=== PATIENT | female | born 1985 | race Caucasian/White ===

== ENCOUNTER → 2017-03-14 | Outpatient (CLI) | payer BC | END | disposition home or self-care (01) | LOC: C.PAPS 15:14 | PROVIDERS: ATTEND Obstetrics & Gynecology | DX: Z01.419 Encounter for gynecological examination (general) (routine) without abnormal findings (principal) ==

== ENCOUNTER → 2018-03-26 | Outpatient (CLI) | payer BC | END | disposition home or self-care (01) | LOC: C.PAPS 11:32 | PROVIDERS: ATTEND Obstetrics & Gynecology | DX: Z01.419 Encounter for gynecological examination (general) (routine) without abnormal findings (principal); Z86.001 Personal history of in-situ neoplasm of cervix uteri ==

== ENCOUNTER → 2018-03-26 | Outpatient (CLI) | payer BC | END | disposition home or self-care (01) | LOC: C.LAB1850 09:10 | PROVIDERS: ATTEND Obstetrics & Gynecology | DX: Z11.3 Encounter for screening for infections with a predominantly sexual mode of transmission (principal) ==

== ENCOUNTER 2019-06-01 19:58 | Inpatient (IN) ==
[2019-06-01] MEDS ORDERED: ONDANSETRON INJ 2 MG/ML 2 ML VIAL IV STA (20:57)
[2019-06-01] MEDS ORDERED: SODIUM CHLORIDE 0.9% 1000ML 2,000 ML IV SCH (21:00)
[2019-06-01 21:10] LABS: Basophils # (auto) 0.03 K/uL (0-0.2); Basophils % (auto) 0.3 %; Eosinophils # (auto) 0.06 K/uL (0-0.5); Eosinophils % (auto) 0.5 %; Hemoglobin 16.6 g/dL (12.0-16.0); Immature Granulocytes # (auto) 0.14 K/uL (0.00-0.02); Immature Granulocytes % (auto) 1.2 %; Lymphocytes # (auto) 3.42 K/uL (1.2-3.4); Lymphocytes % (auto) 28.9 %; Mean Corpuscular Hgb Conc 34.6 g/dL (32-36); Mean Corpuscular Volume 82.5 fL (80-100); Mean Platelet Volume 10.4 fL (7.4-10.4); Monocytes % (auto) 8.5 %; Neutrophils # (auto) 7.17 K/uL (1.4-6.5); Neutrophils % (auto) 60.6 %; Platelet Count 524 K/uL (130-400); RDW Coefficient of Variation 13.7 % (11.5-14.5); RDW Standard Deviation 40.9 fL (36.4-46.3); Red Blood Count 5.82 M/uL (4.2-5.4); White Blood Count 11.82 K/uL (4.8-10.8)
[2019-06-01 21:18] LABS: Albumin Level 3.4 gm/dl (3.4-5.0); BUN Creatinine Ratio 12.3 (10-20); Est GFR (Non-African American) 84.6; Magnesium 2.2 mg/dl (1.8-2.4); Potassium 4.2 mmol/L (3.5-5.1)
[2019-06-01 21:21] LABS: Albumin Globulin Ratio 0.7 (0.9-2); Bilirubin,Total 0.4 mg/dl (0.2-1); Globulin 5.1 gm/dl (2.5-4.0); Phosphorus 2.4 mg/dl (2.5-4.9); Total Protein 8.5 gm/dl (6.4-8.2)
[2019-06-01 21:27] LABS: Pregnancy Test, Serum Negative (Negative)
--- NOTE | 2019-06-02 00:09 | Emergency Department Note ---
Entered by Jimena Obando acting as a scribe for Mario Morocho M.D. History of Present Illness General Chief complaint: Weakness Stated complaint: WEAKNESS,LOWER BACK PAIN,DIARRHEA,DEHYDRATION Source: patient Limitations: no limitations History of Present Illness Onset (ago): week(s) 3 Location: abdomen Pain Consistency: + constant Maximum Pain Intensity: 1 Quality: + other ("cramping"") Relieved By: + none Associated symptoms: + denies other symptoms (hematochezia ), + diaphoresis, + nausea/vomiting and + weakness; no chest pain and no rash The patient is a 34 year old female who presents to the ED complaining of constant "cramping" abdominal pain that began 3 weeks ago. She notes that she was seen in the ED 10 days ago, and her stool samples were negative for C. Diff. Colitis and E. coli. The patient complains of "watery" diarrhea, stating that she has had a couple dozen bowel movements today. She complains of severe nausea, one episode of vomiting 3 weeks ago, diaphoresis, and weakness. She states that she has been hypertensive over the past week, noting that she has been using an at-home blood pressure cuff. The patient denies any chest pain, hematochezia, and rashes. The patient notes that Pedialyte did not provide any relief. She notes that she is prescribed Metformin 500 grams daily. The patient reports that one friend has similar symptoms, noting that they ate zucchini noodles before the symptoms began. She notes that she drinks city water. Home Medications Home Medications Medication Instructions Recorded Confirmed Type amitriptyline 75 mg PO HS 05/23/19 06/01/19 History duloxetine 60 mg PO QPM 05/23/19 06/01/19 History metformin 500 mg PO BID 05/23/19 06/01/19 History norethindrone ac-eth estradiol 1 tab PO DAILY 05/23/19 06/01/19 History [ ()] sitagliptin [Januvia] 100 mg PO QAM 05/23/19 06/01/19 History clonazepam 0.5 mg PO Q6H PRN 06/01/19 06/01/19 History diphenoxylate-atropine [Lomotil] 1 - 2 tab PO Q6H PRN 06/01/19 06/01/19 History duloxetine 30 mg PO QPM 06/01/19 06/01/19 History sumatriptan succinate 50 mg PO DIRECTED PRN MDD 200 06/01/19 06/01/19 History MG/24 HOURS Allergies Allergy/AdvReac Type Severity Reaction Status Date / Time adhesive tape Allergy Mild Rash Verified 06/01/19 20:50 nickel Allergy Mild Rash Verified 06/01/19 20:50 Past Med/Surg History Medical History Anxiety (Chronic) Depression (Chronic) Diabetes (Chronic) Migraine (Chronic) Surgical History No history of previous surgery (Chronic) Social History marital status: Single 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 and A total of 10 systems reviewed and were otherwise negative Physical Exam Vital Signs Vital Signs - 24 hr 06/01/19 20:01 06/01/19 21:35 06/01/19 21:53 Temperature 36.6 C Temperature Source Oral Sepsis Recent Fever Within 48 Hours No Sepsis Action Taken by Nursing No Action Required Pulse Rate 148 H Pulse Rate [Apical] 126 H Respiratory Rate 16 16 Respiratory Effort / Characteristics Non-Labored Spontaneous Non-Labored Spontaneous Respiratory Depth Normal Normal Blood Pressure 166/122 H Blood Pressure [Right Arm] 159/117 H Blood Pressure Mean 136 Blood Pressure Mean [Right Arm] 131 Pulse Oximetry 98 98 Oxygen Delivery Method Room Air Room Air Room Air 06/01/19 23:00 Temperature Temperature Source Sepsis Recent Fever Within 48 Hours Sepsis Action Taken by Nursing Pulse Rate Pulse Rate [Apical] 123 H Respiratory Rate 18 Respiratory Effort / Characteristics Respiratory Depth Blood Pressure Blood Pressure [Right Arm] Blood Pressure Mean Blood Pressure Mean [Right Arm] Pulse Oximetry 98 Oxygen Delivery Method GENERAL: Awake, alert, fatigued in appearance. Midly anxious HENT: Normocephalic, atraumatic. Oropharynx unremarkable. Dry lips. EYES: Normal conjunctiva. Sclera non-icteric. NECK: Supple. No nuchal rigidity. RESPIRATORY: Clear to auscultation. No wheezes. Normal respiratory effort. CARDIAC: Tachycardic rate. Normal rhythm. Extremities warm. GI: Soft, non-distended. No tenderness to palpation. No rebound or guarding. No masses. RECTAL: Deferred. MUSCULOSKELETAL: Atraumatic. Chest examination reveals no tenderness. LOWER EXTREMITIES: Calves are equal size bilaterally and non-tender. No edema NEURO: Normal sensorium. No sensory or motor deficits noted. No facial droop. SKIN: Warm and dry. No rash or jaundice noted. Course 2053: The patient was evaluated in room B09. A complete history and physical exam was performed. 4: I reevaluated the patient. 0009: I spoke with Dr. Kwan, [facility], about the patient's case. He will further evaluate the patient. Consultations Consultation #1: I spoke with Dr. Kwan, [facility], about the patient's case. He will further evaluate the patient. Time: 00:09 Administered Medications Discontinued Medications Sodium Chloride (Nss 1000ml) 2,000 mls @ 999 mls/hr IV .Q2H1M EMMA Stop: 06/01/19 23:00 Last Infusion: 06/01/19 23:23 Dose: 0 mls/hr Documented by: [id number] Admin: 06/01/19 21:20 Dose: 999 mls/hr Documented by: [id number] Sodium Chloride (Nss 1000ml) 1,000 mls @ 999 mls/hr IV .Q1H1M ONE Stop: 06/02/19 01:14 Last Admin: 06/02/19 00:27 Dose: 999 mls/hr Documented by: [id number] Ondansetron HCl (Zofran) 4 mg IV NOW STA Stop: 06/01/19 20:58 Last Admin: 06/01/19 21:20 Dose: 4 mg Documented by: [id number] Medical Decision Making Differential Diagnosis Etiologies such as gastroenteritis, food borne illness, infections, appendicitis, diverticulitis, inflammatory bowel disease, obstruction, GI bleed, biliary pathology, cardiac process, intracranial process, as well as others were entertained. Medical Records Attestation: I reviewed the patient's medical records. Home Medications Current Medication List: was personally reviewed by me Laboratory Data Attestation: I reviewed the patient's lab results. Result diagrams: 06/01/19 20:25 06/01/19 20:25 Lab Results 06/01/19 06/01/19 06/01/19 Range/Units 20:25 20:25 20:25 WBC 11.82 H (4.8-10.8) K/uL RBC 5.82 H (4.2-5.4) M/uL Hgb 16.6 H (12.0-16.0) g/dL Hct 48.0 H (37-47) % MCV 82.5 (80-100) fL MCH 28.5 (25-34) pg MCHC 34.6 (32-36) g/dL RDW Std Deviation 40.9 (36.4-46.3) fL RDW Coeff of Mallory 13.7 (11.5-14.5) % Plt Count 524 H (130-400) K/uL MPV 10.4 (7.4-10.4) fL Immature Gran % (Auto) 1.2 % Neut % (Auto) 60.6 % Lymph % (Auto) 28.9 % [place] % (Auto) 8.5 % Eos % (Auto) 0.5 % Baso % (Auto) 0.3 % Immature Gran # (Auto) 0.14 H (0.00-0.02) K/uL Neut # (Auto) 7.17 H (1.4-6.5) K/uL Lymph # (Auto) 3.42 H (1.2-3.4) K/uL [place] # (Auto) 1.00 H (0.11-0.59) K/uL Eos # (Auto) 0.06 (0-0.5) K/uL Baso # (Auto) 0.03 (0-0.2) K/uL Sodium 139 (136-145) mmol/L Potassium 4.2 (3.5-5.1) mmol/L Chloride 108 H (98-107) mmol/L Carbon Dioxide 22 (21-32) mmol/L Anion Gap 9.0 (3-11) BUN 11 (7-18) mg/dl Creatinine 0.89 (0.6-1.2) mg/dl Est Cr Clr Drug Dosing 103.0 ml/min Est GFR ( Amer) 98.0 Est GFR (Non-Af Amer) 84.6 BUN/Creatinine Ratio 12.3 (10-20) Glucose 173 H (70-99) mg/dl Calcium 9.0 (8.5-10.1) mg/dl Phosphorus 2.4 L (2.5-4.9) mg/dl Magnesium 2.2 (1.8-2.4) mg/dl Total Bilirubin 0.4 (0.2-1) mg/dl AST 41 H (15-37) U/L ALT 76 (12-78) U/L Alkaline Phosphatase 125 H (45-117) U/L Total Protein 8.5 H (6.4-8.2) gm/dl Albumin 3.4 (3.4-5.0) gm/dl Globulin 5.1 H (2.5-4.0) gm/dl Albumin/Globulin Ratio 0.7 L (0.9-2) Lipase 50 L (73-393) U/L TSH 4.010 (0.300-4.500) uIu/ml HCG, Qual Negative (Negative) ECG Data Attestation: I personally reviewed and interpreted this ECG as follows: Indication: abdominal pain Rate (beats per minute): 140 Rhythm: sinus tachycardia Findings: no PVC, no ST depression and no ST elevation Blood Pressure Blood Pressure Findings: Elevated blood pressure Blood Pressure Disposition: further management by hospitalist CASI Brown Patient is a 34-year-old female history of anxiety, migraines, and diabetes presenting today complaining of going on 3 weeks of severe diarrhea daily. Denies any blood in the states is watery. States he feels dehydrated. Severe nausea. Initially an episode of vomiting several weeks ago but none since. Crampy but no significant abdominal tenderness. Was evaluated here approximately 10 days ago. Negative C. difficile and stool testing at that time. Patient denies any significant travel. Patient had a friend with similar exposure who is also experiencing similar symptoms. Patient is significantly tachycardic upon arrival. Concern for dehydration. Given IV fluid. Given Zofran for nausea. Basic laboratory studies were sent to check for signs of anemia, leukocytosis, hepatitis, pancreatitis, or significant elect light abnormality as well as kidney injury. Giardia testing will be sent as well as repeat stool testing. Do not see utility in additional CT scan at this point today. Laboratory studies show improving leukocytosis with some signs of hemoconcentration compared to previous consistent with some dehydration. No significant electrolyte abnormality or signs of kidney injury. No evidence of or pancreatitis. No evidence of acute significant transaminitis. Patient received a 2 L IV fluid bolus and was still tachycardic in the 120s. States she felt extremely weak and did not feel that she could go home. Is likely related some dehydrational effects due to her prolonged episode of diarrhea. Given this discussed with the hospitalist for observation overnight. Impression & Plan Diarrhea, Dehydration, Weakness Discharge Plan Visit Data Chief Complaint: Weakness Stated Complaint: WEAKNESS,LOWER BACK PAIN,DIARRHEA,DEHYDRATION ED Provider: Mario Morocho Discharge Problem: Diarrhea, Dehydration, Weakness Patient Disposition: Being Evaluated by Hospitalist Forms Stand Alone Forms: My [facility] Prescriptions Prescriptions: No Action amitriptyline 75 mg tablet 75 mg PO HS RF: 0 .04/17 () 1.5-30 mg-mcg tablet 1 tab PO DAILY RF: 0 metformin 500 mg tablet extended release 24 hr 500 mg PO BID RF: 0 duloxetine 60 mg capsule,delayed release(DR/EC) 60 mg PO QPM RF: 0 Januvia 100 mg tablet 100 mg PO QAM RF: 0 duloxetine 30 mg capsule,delayed release(DR/EC) 30 mg PO QPM RF: 0 diphenoxylate-atropine [Lomotil] 2.5-0.025 mg tablet 1 - 2 tab PO Q6H PRN (Reason: Diarrhea) RF: 0 clonazepam 0.5 mg tablet 0.5 mg PO Q6H PRN (Reason: Panic Attack(S)) RF: 0 sumatriptan succinate 50 mg tablet 50 mg PO DIRECTED MDD 200 MG/24 HOURS PRN (Reason: Migraine Headache) RF: 0 Referrals Referrals: Sharon Rbuy MD [Primary Care Provider] - Discharge Problem: Diarrhea Qualifiers: Diarrhea type: unspecified type Qualified Code(s): R19.7 - Diarrhea, unspecified The scribe's documentation has been prepared under my direction and personally reviewed by me in its entirety. I confirm that the note above accurately reflects all work, treatment, procedures, and medical decision making performed by me.
[2019-06-02] MEDS ORDERED: SODIUM CHLORIDE 0.9% 1000ML 1,000 ML IV ONE (00:14)
[2019-06-02] MEDS ORDERED: LACTATED RINGER'S 1,000 ML IV SCH ×2 (00:15→01:30)
--- NOTE | 2019-06-02 00:57 | History & Physical Report ---
Date of Service June 02, 2019 Assessment & Plan (1) Diarrhea: Month-long symptoms No signs of toxicity ? Januvia or Metformin side effect Rule out enteric pathogens/parasites Tachycardia, situational hypertension Secondary to illness DM2, on oral medications Newly diagnosed last month Hemoglobin A1c was 9.2 Mood disorder, at baseline OBS Medical telemetry for IVF, antidiarrheals Stool cultures GI consult RE persistent diarrhea Monitor diarrhea symptoms while metformin and Januvia on hold inpatient. Monitor blood pressure, initiate lisinopril if persistently elevated. Basal insulin, ISS BG goal, 1 40-1 80, carb count coverage DVT prophylaxis. Lovenox subcu Full code History of Present Illness Chief Complaint: Persistent diarrhea Primary Care Provider: Sharon Ruby MD History obtained from patient and records. Medical history significant for mood disorder, DM 2 on oral medications, past tobacco abuse. 1 month history of watery diarrhea symptoms (more than 12 times a day) with abdominal cramping. Low-grade fever. Episodic nausea, vomiting. No recent antibiotic Rx, no known sick contacts, no recent travel. Januvia and Metformin for newly diagnosed DM2 started a week prior to onset of diarrhea symptoms last month. Diarrhea persistent despite stopping metformin intake for one day as per patient. Patient seen at the ER [address] of the abdomen pelvis showed fluid-filled colon and rectum suggesting diarrheal state. No bowel thickening. Fatty infiltration of the liver. Stool C. difficile was negative Antidiarrheal meds prescribed. Patient return to the ER tonight because of persistent diarrhea symptoms. Patient denies chest pain, S OB. 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 Allergies Allergy/AdvReac Type Severity Reaction Status Date / Time adhesive tape Allergy Mild Rash Verified 06/01/19 20:50 nickel Allergy Mild Rash Verified 06/01/19 20:50 lactose AdvReac Verified 06/02/19 03:11 Home Medications Home Medications Medication Instructions Recorded Confirmed Type amitriptyline 75 mg PO HS 05/23/19 06/01/19 History duloxetine 60 mg PO QPM 05/23/19 06/01/19 History metformin 500 mg PO BID 05/23/19 06/01/19 History norethindrone ac-eth estradiol 1 tab PO DAILY 05/23/19 06/01/19 History [Junel ()] sitagliptin [Januvia] 100 mg PO QAM 05/23/19 06/01/19 History clonazepam 0.5 mg PO Q6H PRN 06/01/19 06/01/19 History diphenoxylate-atropine [Lomotil] 1 - 2 tab PO Q6H PRN 06/01/19 06/01/19 History duloxetine 30 mg PO QPM 06/01/19 06/01/19 History sumatriptan succinate 50 mg PO DIRECTED PRN MDD 200 06/01/19 06/01/19 History MG/24 HOURS Past Med/Surg History Medical History Anxiety (Chronic) Depression (Chronic) Diabetes (Chronic) Migraine (Chronic) Surgical History No history of previous surgery (Chronic) Social History marital status: Single 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 Feels Safe at Home: Yes Smoking Status: Never smoker Review of Systems Review of Systems: As per HPI, all 10 systems reviewed, all other ROS negative Physical Exam Physical Exam: GENERAL: Slightly uncomfortable, pleasant, obese, no respiratory distress SKIN: Normal color, warm HEENT: Bespectacled, pink palpebral conjunctivae, no ptosis, dry buccal mucosa NECK : Supple, short, no tenderness CHEST : CTA, no tenderness HEART : Tachycardic , no obvious murmurs ABDOMEN: Some distention, nontender EXTREMITIES : No LE swelling/tenderness, no other conspicuous deformities noted NEUROLOGIC : Coherent, no facial asymmetry, no other gross focality Results & Data Vital Signs (Past 12 Hours) Vital Signs Temp Pulse Pulse Resp BP BP Pulse Ox 06/01/19 23:00 123 H 18 98 06/01/19 21:53 126 H 16 159/117 H 98 06/01/19 20:01 36.6 C 148 H 16 166/122 H 98 Laboratory Results Laboratory Results WBC 11.82 K/uL (4.8-10.8) H 06/01/19 20:25 RBC 5.82 M/uL (4.2-5.4) H 06/01/19 20:25 Hgb 16.6 g/dL (12.0-16.0) H 06/01/19 20:25 Hct 48.0 % (37-47) H 06/01/19 20:25 MCV 82.5 fL (80-100) 06/01/19 20:25 MCH 28.5 pg (25-34) 06/01/19 20:25 MCHC 34.6 g/dL (32-36) 06/01/19 20:25 RDW Std Deviation 40.9 fL (36.4-46.3) 06/01/19 20:25 RDW Coeff of Mallory 13.7 % (11.5-14.5) 06/01/19 20:25 Plt Count 524 K/uL (130-400) H 06/01/19 20:25 MPV 10.4 fL (7.4-10.4) 06/01/19 20:25 Immature Gran % (Auto) 1.2 % 06/01/19 20:25 Neut % (Auto) 60.6 % 06/01/19 20:25 Lymph % (Auto) 28.9 % 06/01/19 20:25 [place] % (Auto) 8.5 % 06/01/19 20:25 Eos % (Auto) 0.5 % 06/01/19 20:25 Baso % (Auto) 0.3 % 06/01/19 20:25 Immature Gran # (Auto) 0.14 K/uL (0.00-0.02) H 06/01/19 20:25 Neut # (Auto) 7.17 K/uL (1.4-6.5) H 06/01/19 20:25 Lymph # (Auto) 3.42 K/uL (1.2-3.4) H 06/01/19 20:25 [place] # (Auto) 1.00 K/uL (0.11-0.59) H 06/01/19 20:25 Eos # (Auto) 0.06 K/uL (0-0.5) 06/01/19 20:25 Baso # (Auto) 0.03 K/uL (0-0.2) 06/01/19 20:25 Sodium 139 mmol/L (136-145) 06/01/19 20:25 Potassium 4.2 mmol/L (3.5-5.1) 06/01/19 20:25 Chloride 108 mmol/L (98-107) H 06/01/19 20:25 Carbon Dioxide 22 mmol/L (21-32) 06/01/19 20:25 Anion Gap 9.0 (3-11) 06/01/19 20:25 BUN 11 mg/dl (7-18) 06/01/19 20:25 Creatinine 0.89 mg/dl (0.6-1.2) 06/01/19 20:25 Est Cr Clr Drug Dosing 103.0 ml/min 06/01/19 20:25 Est GFR ( Amer) 98.0 06/01/19 20:25 Est GFR (Non-Af Amer) 84.6 06/01/19 20:25 BUN/Creatinine Ratio 12.3 (10-20) 06/01/19 20:25 Glucose 173 mg/dl (70-99) H 06/01/19 20:25 Calcium 9.0 mg/dl (8.5-10.1) 06/01/19 20:25 Phosphorus 2.4 mg/dl (2.5-4.9) L 06/01/19 20:25 Magnesium 2.2 mg/dl (1.8-2.4) 06/01/19 20:25 Total Bilirubin 0.4 mg/dl (0.2-1) 06/01/19 20:25 AST 41 U/L (15-37) H 06/01/19 20:25 ALT 76 U/L (12-78) 06/01/19 20:25 Alkaline Phosphatase 125 U/L (45-117) H 06/01/19 20:25 Total Protein 8.5 gm/dl (6.4-8.2) H 06/01/19 20:25 Albumin 3.4 gm/dl (3.4-5.0) 06/01/19 20:25 Globulin 5.1 gm/dl (2.5-4.0) H 06/01/19 20:25 Albumin/Globulin Ratio 0.7 (0.9-2) L 06/01/19 20:25 Lipase 50 U/L (73-393) L 06/01/19 20:25 TSH 4.010 uIu/ml (0.300-4.500) 06/01/19 20:25 HCG, Qual Negative (Negative) 06/01/19 20:25 Diagnostic Findings EKG as per my interpretation rate 140, sinus tachycardia, no ischemia
[2019-06-02] MEDS ORDERED: LACTATED RINGER'S 1,000 ML IV ONE (01:05)
[2019-06-02] MEDS ORDERED: LOPERAMIDE HCL 2 MG CAP PO PRN (02:13)
[2019-06-02] MEDS ORDERED: GLUCAGON FOR INJ 1 MG VIAL SQ PRN (02:13)
[2019-06-02] MEDS ORDERED: DEXTROSE 50% 50 ML SYRINGE IV PRN (02:13)
[2019-06-02] MEDS ORDERED: clonazePAM 0.5 MG TAB PO PRN (02:13)
[2019-06-02] MEDS ORDERED: GLUCOSE 40% GEL 15 GM TUBE PO PRN (02:13)
[2019-06-02] MEDS ORDERED: CARBOHYDRATES FOR HYPOGLYCEMIA PO PRN (02:13)
[2019-06-02] MEDS ORDERED: LACTATED RINGER'S 1,000 ML IV STA (02:13)
[2019-06-02] MEDS ORDERED: TRAMADOL HCL 50 MG TABLET PO PRN (02:13)
[2019-06-02] MEDS ORDERED: ACETAMINOPHEN 325 MG TAB PO PRN (02:13)
[2019-06-02] MEDS ORDERED: GLUCOSE 10 TABS/TUBE PO PRN (02:13)
[2019-06-02] MEDS ORDERED: INSULIN GLARGINE SOLOSTAR 100 UNITS/ML 3 ML PEN SQ STA (02:13)
[2019-06-02] MEDS ORDERED: PROMETHAZINE HCL 12.5 MG in SODIUM CHLORIDE 0.9% 50 ML IV PRN (02:13)
[2019-06-02] MEDS ORDERED: LISINOPRIL 2.5 MG TAB PO ONE ×2 (02:35→04:26)
[2019-06-02] MEDS ORDERED: POTASSIUM PHOS 3 MMOL/1 ML INFUSION IV STA (02:45)
[2019-06-02] MEDS ORDERED: LORazepam 0.5 MG/1 ML VIAL IV PRN (03:07)
[2019-06-02] MEDS ORDERED: POTASSIUM PHOSPHATE 18 MMOL in SODIUM CHLORIDE 0.9% 500 ML IV ONE (03:15)
[2019-06-02] MEDS: INSULIN ASPART 100 UNITS/ML 3 ML PEN SC SCH ×5 (04:03→20:44)
[2019-06-02] MEDS ORDERED: METOPROLOL TARTRATE 1 MG/ML VIAL IV STA ×2 (04:26→04:32)
--- NOTE | 2019-06-02 06:29 | XRay Report ---
XR chest 1V portable CLINICAL HISTORY: tachycardia COMPARISON STUDY: No previous studies for comparison. FINDINGS: The cardiac and mediastinal contours are normal. There is no evidence of focal pulmonary co nsolidation. There is no evidence of failure. No pleural effusions are visualized.[ IMPRESSION: No active disease in the chest. Electronically signed by: Jaden Coyne M.D. 06/02/2019 6:28 AM
[2019-06-02] MEDS ORDERED: PHARMACY GLYCEMIC MGMT CONSULT PRN (07:22)
[2019-06-02] MEDS: BCP'S~ORDER AWAITING ACTION SCH ×2 (07:35→15:09)
[2019-06-02 07:49] LABS: Prothrombin Time 9.9 Seconds (9.0-12.0)
[2019-06-02 08:18] LABS: Albumin Globulin Ratio 0.7 (0.9-2); Albumin Level 2.5 gm/dl (3.4-5.0); BUN Creatinine Ratio 11.5 (10-20); Bilirubin,Total 0.4 mg/dl (0.2-1); Calcium 7.8 mg/dl (8.5-10.1); Creatinine Clr Calc Pharmacy 138.7 ml/min; Est GFR (African American) 132.9; Est GFR (Non-African American) 114.7; Globulin 3.4 gm/dl (2.5-4.0); Potassium 4.2 mmol/L (3.5-5.1); Total Protein 5.9 gm/dl (6.4-8.2)
[2019-06-02 08:55] LABS: Hematocrit (blood only) 38.2 % (37-47); Hemoglobin 12.6 g/dL (12.0-16.0); Mean Corpuscular Volume 83.8 fL (80-100); Mean Platelet Volume 10.3 fL (7.4-10.4); Platelet Count 367 K/uL (130-400); RDW Standard Deviation 42.3 fL (36.4-46.3); Red Blood Count 4.56 M/uL (4.2-5.4); White Blood Count 8.43 K/uL (4.8-10.8)
[2019-06-02] MEDS: INSULIN GLARGINE SOLOSTAR 100 UNITS/ML 3 ML PEN SC SCH (08:55)
[2019-06-02] MEDS: ENOXAPARIN INJ 40 MG/0.4 ML SYR SQ SCH (08:56)
[2019-06-02 09:06] LABS: Basophils # (auto) 0.01 K/uL (0-0.2); Basophils % (auto) 0.1 %; Eosinophils # (auto) 0.15 K/uL (0-0.5); Eosinophils % (auto) 1.8 %; Immature Granulocytes # (auto) 0.09 K/uL (0.00-0.02); Immature Granulocytes % (auto) 1.1 %; Lymphocytes # (auto) 3.69 K/uL (1.2-3.4); Lymphocytes % (auto) 43.8 %; Monocytes # (auto) 0.82 K/uL (0.11-0.59); Monocytes % (auto) 9.7 %; Neutrophils # (auto) 3.67 K/uL (1.4-6.5); Neutrophils % (auto) 43.5 %; Platelet Estimate Increased (Normal)
[2019-06-02 10:12] LABS: Appearance Urine Cloudy (Clear); Bacteria Urine Automated 1+ (Negative); Bilirubin Urine Negative (Negative); Blood Urine Negative (Negative); Color Urine Yellow; Epithelial Cell Urine Auto >30 /lpf (0-5); Glucose Urine UA Negative (Negative); Ketones Urine Negative (Negative); Leukocyte Esterase Urine 1+ (Negative); Nitrite Urine Negative (Negative); Protein Urine Negative (Negative); RBC Urine Automated 0-4 /hpf (0-4); Urobilinogen Urine Negative (Negative)
--- NOTE | 2019-06-02 10:28 | Hospitalist Progress Note ---
Date of Service June 02, 2019 Assessment & Plan (1) Diarrhea: -Patient with 3 weeks of diarrhea -patient reports sick contact also with diarrhea around the same time -patient also notes that she was started on oral metformin and Januvia 6 weeks ago in the beginning of April 2019 for newly diagnosed Diabetes Mellitus -unclear at to the cause of the diarrhea as infectious process versus use of metformin -hold metformin/Januvia for now -follow stool studies. 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 SCDs and ambulation Full code Subjective Patient appears comfortable. Sinus tachycardia. on telemetry monitoring. no chest pain. no shortness of breath. we discussed the diarrhea issues and diabetes glucose control. no abdomen pain. no dizziness. no lightheadedness Physical Exam Constitutional: + obese Eyes: PERRL, conjunctivae normal, anicteric sclerae EOM intact bilaterally ENMT: external ear and nose normal, oropharynx normal Neck: trachea midline, no thyromegaly Respiratory: normal respiratory effort, lungs clear to auscultation Cardiovascular: Rate/Rhythm: regular rhythm and + tachycardic Gastrointestinal (Abdomen): normal bowel sounds, soft, nontender, no hepatosplenomegaly Musculoskeletal: no cyanosis or clubbing, extremities motor strength 5/5 Neurologic: PERRL, EOMI, accommodation nl, no face palsy, no dysarthria CN's II-XI intact bilaterally Psychiatric: A+Ox3, euthymic affect Results & Data Vital Signs (Past 12 Hours) Vital Signs Temp Pulse Pulse Resp BP BP BP 06/02/19 08:00 107 H 06/02/19 07:26 36.5 C 108 H 18 142/97 H 06/02/19 04:59 112 H 140/98 06/02/19 04:23 36.7 C 123 H 18 136/94 06/02/19 03:50 37.3 C 148 H 16 179/130 H 06/02/19 01:35 112 H 18 154/108 H 06/01/19 23:00 123 H 18 Pulse Ox 06/02/19 08:00 06/02/19 07:26 98 06/02/19 04:59 98 06/02/19 04:23 96 06/02/19 03:50 100 06/02/19 01:35 98 06/01/19 23:00 98
[2019-06-02] MEDS ORDERED: SODIUM CHLORIDE 0.9% 500 ML IV SCH (10:30)
--- NOTE | 2019-06-02 10:54 | Gastrointestinal Consultation ---
Date of Consultation June 02, 2019 Assessment & Plan (1) Diarrhea: 34 year old female with history of obesity, T2DM recently started on Metformin and Januvia w/ diarrhea x 1 months. C.diff and stool culture negative, CT w/ evidence of diarrhea but no other acute findings DDX: infectious, IBS, medication induced C.diff negative Stool culture negative Would start colestid TID diarrhea Trial Bentyl 10 mg TID PRN If symptoms persist, consider colonoscopy to rule out microscopic colitis, less likely IBD We did discuss medication induced symptoms Thank you for allowing us to participate in the care of this patient. Please call with any acute changes, questions or concerns. Please see addendum below with additional recommendation from my supervising physician. Present on Admission?: Yes Supervising Physician Co-Signing Physician Notes I have personally seen and examined the patient with REVA Echols. Her note reflects my exam and findings. I agree with her impression and plan. No diarrhea since admission. States, "Doing better". Plan out patient colonoscopy. Most likely diet and/or medication related. Dax Dunham M.D. History of Present Illness Reason for Consultation: diarrhea Requesting Physician: Lorne Attending Physician: Osmin Pradhan MD History of Present Illness 34 year old female with history of obesity, T2DM recently started on Metformin and Januvia in April who presents through the ED for evaluation of diarrhea. Pt was seen and evaluated, chart reviewed. Endorses change in bowel habits about 2 weeks ago starting Metformin and Januvia w/ persistent symtoms. Notes at first she thought symptoms were from her medications but notes friend with similar symptoms. Notes lower abd cramping, assocaited w/ BM urgency. Moving bowels semi-formed to liquid about once an hour. Brown stools. No black or bloody stools. Over the past 72 hours feels like some of her symptoms are improving. No UGI symptoms. No fever, chills, CP, SOB c.diff negative culture negative but repeat culture pending CT: Fluid-filled colon and rectum suggestive of a diarrheal state. No bowel wall thickening. Normal appendix. No bowel obstruction. Fatty infiltration of the liver. Allergies Allergy/AdvReac Type Severity Reaction Status Date / Time adhesive tape Allergy Mild Rash Verified 06/01/19 20:50 nickel Allergy Mild Rash Verified 06/01/19 20:50 lactose AdvReac Verified 06/02/19 03:11 Home Medications Home Medications Medication Instructions Recorded Confirmed Type amitriptyline 75 mg PO HS 05/23/19 06/01/19 History duloxetine 60 mg PO QPM 05/23/19 06/01/19 History metformin 500 mg PO BID 05/23/19 06/01/19 History norethindrone ac-eth estradiol 1 tab PO DAILY 05/23/19 06/01/19 History [Junel ()] sitagliptin [Januvia] 100 mg PO QAM 05/23/19 06/01/19 History clonazepam 0.5 mg PO Q6H PRN 06/01/19 06/01/19 History diphenoxylate-atropine [Lomotil] 1 - 2 tab PO Q6H PRN 06/01/19 06/01/19 History duloxetine 30 mg PO QPM 06/01/19 06/01/19 History sumatriptan succinate 50 mg PO DIRECTED PRN MDD 200 06/01/19 06/01/19 History MG/24 HOURS Patient History Medical History Anxiety (Chronic) Depression (Chronic) Diabetes (Chronic) Migraine (Chronic) Surgical History No history of previous surgery (Chronic) Social History Preferred Language: Chilean Communication Ability: Effective Beliefs That Will Affect Care: None marital status: Single Current Living Situation Comment: Roommate current occupational status: employed Other Information That Helps Us Care for You: No Feels Safe at Home: Yes Safety Concerns: Feels Safe At This Time Smoking Status: Former smoker Tobacco Type: cigarettes Hx Alcohol Use: Yes Hx Substance Use: No Review of Systems Constitutional: no fever, no chills and no fatigue Respiratory: no cough, no dyspnea and no pain on inspiration Cardiovascular: no chest pain, no radiating jaw, neck or arm pain, no dyspnea on exertion and no palpitations Gastrointestinal: + change in bowel habits and + diarrhea/loose stools; no abdominal pain, no belching, no early satiety, no heartburn, no vomiting, no coffee ground emesis, no hematemesis, no blood in stools and no melena Physical Exam Constitutional: well developed and well nourished; no acute distress and not ill appearing Respiratory: normal respiratory effort, lungs clear to auscultation Cardiovascular: RRR, no murmur, no edema Gastrointestinal (Abdomen): normal bowel sounds, soft, nontender, no hepatosplenomegaly Skin: no rashes, warm and dry Results & Data Vital Signs (Past 12 Hours) Vital Signs Temp Pulse Pulse Resp BP BP BP 06/02/19 08:00 107 H 06/02/19 07:26 36.5 C 108 H 18 142/97 H 06/02/19 04:59 112 H 140/98 06/02/19 04:23 36.7 C 123 H 18 136/94 06/02/19 03:50 37.3 C 148 H 16 179/130 H 06/02/19 01:35 112 H 18 154/108 H 06/01/19 23:00 123 H 18 Pulse Ox 06/02/19 08:00 06/02/19 07:26 98 06/02/19 04:59 98 06/02/19 04:23 96 06/02/19 03:50 100 06/02/19 01:35 98 06/01/19 23:00 98 Laboratory Results 06/02/19 06/02/19 06/02/19 Range/Units 09:35 09:35 07:42 WBC (4.8-10.8) K/uL RBC (4.2-5.4) M/uL Hgb (12.0-16.0) g/dL Hct (37-47) % MCV (80-100) fL MCH (25-34) pg MCHC (32-36) g/dL RDW Std Deviation (36.4-46.3) fL RDW Coeff of Mallory (11.5-14.5) % Plt Count (130-400) K/uL MPV (7.4-10.4) fL Immature Gran % (Auto) % Neut % (Auto) % Lymph % (Auto) % [place] % (Auto) % Eos % (Auto) % Baso % (Auto) % Immature Gran # (Auto) (0.00-0.02) K/uL Neut # (Auto) (1.4-6.5) K/uL Lymph # (Auto) (1.2-3.4) K/uL [place] # (Auto) (0.11-0.59) K/uL Eos # (Auto) (0-0.5) K/uL Baso # (Auto) (0-0.2) K/uL Platelet Estimate (Normal) PT (9.0-12.0) Seconds INR (0.9-1.1) Sodium (136-145) mmol/L Potassium (3.5-5.1) mmol/L Chloride (98-107) mmol/L Carbon Dioxide (21-32) mmol/L Anion Gap (3-11) BUN (7-18) mg/dl Creatinine (0.6-1.2) mg/dl Est Cr Clr Drug Dosing ml/min Est GFR ( Amer) Est GFR (Non-Af Amer) BUN/Creatinine Ratio (10-20) Glucose (70-99) mg/dl POC Glucose 87 (70-99) Calcium (8.5-10.1) mg/dl Phosphorus (2.5-4.9) mg/dl Magnesium (1.8-2.4) mg/dl Total Bilirubin (0.2-1) mg/dl AST (15-37) U/L ALT (12-78) U/L Alkaline Phosphatase (45-117) U/L Total Protein (6.4-8.2) gm/dl Albumin (3.4-5.0) gm/dl Globulin (2.5-4.0) gm/dl Albumin/Globulin Ratio (0.9-2) Lipase (73-393) U/L TSH (0.300-4.500) uIu/ml HCG, Qual (Negative) Urine Color Yellow Urine Appearance Cloudy A (Clear) Urine pH 5.0 (4.5-7.5) Ur Specific [place] 1.020 (1.000-1.030) Urine Protein Negative (Negative) Urine Glucose (UA) Negative (Negative) Urine Ketones Negative (Negative) Urine Blood Negative (Negative) Urine Nitrite Negative (Negative) Urine Bilirubin Negative (Negative) Urine Urobilinogen Negative (Negative) Ur Leukocyte Esterase 1+ H (Negative) Urine WBC (Auto) Pending Urine RBC (Auto) Pending U Hyaline Cast (Auto) Pending U Epithel Cells (Auto) Pending Urine Bacteria (Auto) Pending Ur Renal Epithelial Cell Pending Urine Opiates Screen Pending Ur Methadone, Qual Pending Urine Barbiturates Pending Ur Phencyclidine (PCP) Pending U Amphetamin/Meth Scrn Pending MDMA (Ecstasy) Screen Pending U Benzodiazepines Scrn Pending Ur Cocaine Metabolite Pending U Marijuana (THC) Screen Pending Giardia Antigen 06/02/19 06/02/19 06/02/19 Range/Units 07:26 07:26 07:26 WBC 8.43 (4.8-10.8) K/uL RBC 4.56 (4.2-5.4) M/uL Hgb 12.6 D (12.0-16.0) g/dL Hct 38.2 (37-47) % MCV 83.8 (80-100) fL MCH 27.6 (25-34) pg MCHC 33.0 (32-36) g/dL RDW Std Deviation 42.3 (36.4-46.3) fL RDW Coeff of Mallory 14.0 (11.5-14.5) % Plt Count 367 (130-400) K/uL MPV 10.3 (7.4-10.4) fL Immature Gran % (Auto) 1.1 % Neut % (Auto) 43.5 % Lymph % (Auto) 43.8 % [place] % (Auto) 9.7 % Eos % (Auto) 1.8 % Baso % (Auto) 0.1 % Immature Gran # (Auto) 0.09 H (0.00-0.02) K/uL Neut # (Auto) 3.67 (1.4-6.5) K/uL Lymph # (Auto) 3.69 H (1.2-3.4) K/uL [place] # (Auto) 0.82 H (0.11-0.59) K/uL Eos # (Auto) 0.15 (0-0.5) K/uL Baso # (Auto) 0.01 (0-0.2) K/uL Platelet Estimate Increased H (Normal) PT 9.9 (9.0-12.0) Seconds INR 1.0 (0.9-1.1) Sodium 141 (136-145) mmol/L Potassium 4.2 (3.5-5.1) mmol/L Chloride 113 H (98-107) mmol/L Carbon Dioxide 22 (21-32) mmol/L Anion Gap 6.0 (3-11) BUN 8 (7-18) mg/dl Creatinine 0.67 (0.6-1.2) mg/dl Est Cr Clr Drug Dosing 138.7 ml/min Est GFR ( Amer) 132.9 Est GFR (Non-Af Amer) 114.7 BUN/Creatinine Ratio 11.5 (10-20) Glucose 94 (70-99) mg/dl POC Glucose (70-99) Calcium 7.8 L (8.5-10.1) mg/dl Phosphorus (2.5-4.9) mg/dl Magnesium (1.8-2.4) mg/dl Total Bilirubin 0.4 (0.2-1) mg/dl AST 35 (15-37) U/L ALT 55 (12-78) U/L Alkaline Phosphatase 88 (45-117) U/L Total Protein 5.9 L D (6.4-8.2) gm/dl Albumin 2.5 L (3.4-5.0) gm/dl Globulin 3.4 (2.5-4.0) gm/dl Albumin/Globulin Ratio 0.7 L (0.9-2) Lipase (73-393) U/L TSH (0.300-4.500) uIu/ml HCG, Qual (Negative) Urine Color Urine Appearance (Clear) Urine pH (4.5-7.5) Ur Specific [place] (1.000-1.030) Urine Protein (Negative) Urine Glucose (UA) (Negative) Urine Ketones (Negative) Urine Blood (Negative) Urine Nitrite (Negative) Urine Bilirubin (Negative) Urine Urobilinogen (Negative) Ur Leukocyte Esterase (Negative) Urine WBC (Auto) Urine RBC (Auto) U Hyaline Cast (Auto) U Epithel Cells (Auto) Urine Bacteria (Auto) Ur Renal Epithelial Cell Urine Opiates Screen Ur Methadone, Qual Urine Barbiturates Ur Phencyclidine (PCP) U Amphetamin/Meth Scrn MDMA (Ecstasy) Screen U Benzodiazepines Scrn Ur Cocaine Metabolite U Marijuana (THC) Screen Giardia Antigen 06/02/19 06/01/19 06/01/19 Range/Units 03:35 23:20 20:25 WBC (4.8-10.8) K/uL RBC (4.2-5.4) M/uL Hgb (12.0-16.0) g/dL Hct (37-47) % MCV (80-100) fL MCH (25-34) pg MCHC (32-36) g/dL RDW Std Deviation (36.4-46.3) fL RDW Coeff of Mallory (11.5-14.5) % Plt Count (130-400) K/uL MPV (7.4-10.4) fL Immature Gran % (Auto) % Neut % (Auto) % Lymph % (Auto) % [place] % (Auto) % Eos % (Auto) % Baso % (Auto) % Immature Gran # (Auto) (0.00-0.02) K/uL Neut # (Auto) (1.4-6.5) K/uL Lymph # (Auto) (1.2-3.4) K/uL [place] # (Auto) (0.11-0.59) K/uL Eos # (Auto) (0-0.5) K/uL Baso # (Auto) (0-0.2) K/uL Platelet Estimate (Normal) PT (9.0-12.0) Seconds INR (0.9-1.1) Sodium (136-145) mmol/L Potassium (3.5-5.1) mmol/L Chloride (98-107) mmol/L Carbon Dioxide (21-32) mmol/L Anion Gap (3-11) BUN (7-18) mg/dl Creatinine (0.6-1.2) mg/dl Est Cr Clr Drug Dosing ml/min Est GFR ( Amer) Est GFR (Non-Af Amer) BUN/Creatinine Ratio (10-20) Glucose (70-99) mg/dl POC Glucose 96 (70-99) Calcium (8.5-10.1) mg/dl Phosphorus (2.5-4.9) mg/dl Magnesium (1.8-2.4) mg/dl Total Bilirubin (0.2-1) mg/dl AST (15-37) U/L ALT (12-78) U/L Alkaline Phosphatase (45-117) U/L Total Protein (6.4-8.2) gm/dl Albumin (3.4-5.0) gm/dl Globulin (2.5-4.0) gm/dl Albumin/Globulin Ratio (0.9-2) Lipase (73-393) U/L TSH (0.300-4.500) uIu/ml HCG, Qual Negative (Negative) Urine Color Urine Appearance (Clear) Urine pH (4.5-7.5) Ur Specific [place] (1.000-1.030) Urine Protein (Negative) Urine Glucose (UA) (Negative) Urine Ketones (Negative) Urine Blood (Negative) Urine Nitrite (Negative) Urine Bilirubin (Negative) Urine Urobilinogen (Negative) Ur Leukocyte Esterase (Negative) Urine WBC (Auto) Urine RBC (Auto) U Hyaline Cast (Auto) U Epithel Cells (Auto) Urine Bacteria (Auto) Ur Renal Epithelial Cell Urine Opiates Screen Ur Methadone, Qual Urine Barbiturates Ur Phencyclidine (PCP) U Amphetamin/Meth Scrn MDMA (Ecstasy) Screen U Benzodiazepines Scrn Ur Cocaine Metabolite U Marijuana (THC) Screen Giardia Antigen Pending 06/01/19 06/01/19 Range/Units 20:25 20:25 WBC 11.82 H (4.8-10.8) K/uL RBC 5.82 H (4.2-5.4) M/uL Hgb 16.6 H (12.0-16.0) g/dL Hct 48.0 H (37-47) % MCV 82.5 (80-100) fL MCH 28.5 (25-34) pg MCHC 34.6 (32-36) g/dL RDW Std Deviation 40.9 (36.4-46.3) fL RDW Coeff of Mallory 13.7 (11.5-14.5) % Plt Count 524 H (130-400) K/uL MPV 10.4 (7.4-10.4) fL Immature Gran % (Auto) 1.2 % Neut % (Auto) 60.6 % Lymph % (Auto) 28.9 % [place] % (Auto) 8.5 % Eos % (Auto) 0.5 % Baso % (Auto) 0.3 % Immature Gran # (Auto) 0.14 H (0.00-0.02) K/uL Neut # (Auto) 7.17 H (1.4-6.5) K/uL Lymph # (Auto) 3.42 H (1.2-3.4) K/uL [place] # (Auto) 1.00 H (0.11-0.59) K/uL Eos # (Auto) 0.06 (0-0.5) K/uL Baso # (Auto) 0.03 (0-0.2) K/uL Platelet Estimate (Normal) PT (9.0-12.0) Seconds INR (0.9-1.1) Sodium 139 (136-145) mmol/L Potassium 4.2 (3.5-5.1) mmol/L Chloride 108 H (98-107) mmol/L Carbon Dioxide 22 (21-32) mmol/L Anion Gap 9.0 (3-11) BUN 11 (7-18) mg/dl Creatinine 0.89 (0.6-1.2) mg/dl Est Cr Clr Drug Dosing 103.0 ml/min Est GFR ( Amer) 98.0 Est GFR (Non-Af Amer) 84.6 BUN/Creatinine Ratio 12.3 (10-20) Glucose 173 H (70-99) mg/dl POC Glucose (70-99) Calcium 9.0 (8.5-10.1) mg/dl Phosphorus 2.4 L (2.5-4.9) mg/dl Magnesium 2.2 (1.8-2.4) mg/dl Total Bilirubin 0.4 (0.2-1) mg/dl AST 41 H (15-37) U/L ALT 76 (12-78) U/L Alkaline Phosphatase 125 H (45-117) U/L Total Protein 8.5 H (6.4-8.2) gm/dl Albumin 3.4 (3.4-5.0) gm/dl Globulin 5.1 H (2.5-4.0) gm/dl Albumin/Globulin Ratio 0.7 L (0.9-2) Lipase 50 L (73-393) U/L TSH 4.010 (0.300-4.500) uIu/ml HCG, Qual (Negative) Urine Color Urine Appearance (Clear) Urine pH (4.5-7.5) Ur Specific [place] (1.000-1.030) Urine Protein (Negative) Urine Glucose (UA) (Negative) Urine Ketones (Negative) Urine Blood (Negative) Urine Nitrite (Negative) Urine Bilirubin (Negative) Urine Urobilinogen (Negative) Ur Leukocyte Esterase (Negative) Urine WBC (Auto) Urine RBC (Auto) U Hyaline Cast (Auto) U Epithel Cells (Auto) Urine Bacteria (Auto) Ur Renal Epithelial Cell Urine Opiates Screen Ur Methadone, Qual Urine Barbiturates Ur Phencyclidine (PCP) U Amphetamin/Meth Scrn MDMA (Ecstasy) Screen U Benzodiazepines Scrn Ur Cocaine Metabolite U Marijuana (THC) Screen Giardia Antigen
[2019-06-02 10:59] LABS: Amphetamines+Metham, Urine Neg (Neg); Barbiturates, Urine Neg (Neg); Benzodiazepine, Urine Neg (Neg); Cocaine, Urine Neg (Neg); MDMA (Ecstacy), Urine Neg (Neg); Methadone, Urine Neg (Neg); Opiate, Urine Neg (Neg); Phencyclidine, Urine Neg (Neg)
--- NOTE | 2019-06-02 15:09 | Pharmacy Report ---
Pharmacy Glycemic Short Note 2 - Date of Service June 02, 2019 - Glycemic Short BSG Results (Last 24 hours): 06/01/19 06/02/19 06/02/19 20:25 03:35 07:26 Glucose 173 H 94 POC Glucose 96 06/02/19 06/02/19 07:42 11:43 Glucose POC Glucose 87 91 OUTPATIENT ANTIDIABETIC REGIMEN: * Metformin 500mg BID * Sitagliptin 100mg Qam ASSESSMENT: * Newly diagnosed T2 diabetic presenting with GI upset, possibly related to metformin initiation last month. Morning BSGs very well controlled after no apparent insulin administration. Will dose both basal and bolus rather conservatively to start (~ weight based stress of 1). Patient tolerating a clear liquid diet. PLAN FOR INPATIENT GLYCEMIC CONTROL: * Hold outpatient oral diabetes medications * Basal insulin * Lantus 10 units SQ this morning * Lantus scale this evening (5,10, or 15 units based on BSG-see MAR for details) * Bolus insulin * NovoLog per scale ACHS or Q6hrs while NPO * Goal Range: Low 120 mg/dL - High 160 mg/dL * Correction Factor: 25 mg/dL/unit * Nutritional / Prandial insulin per carb ratio of 1 unit per 10 grams CHO consumed PLAN FOR DISCHARGE: * TBD. If continuation of metformin is desired, may consider switching to the extended release formulation as this has been associated with less GI side effects.
[2019-06-02] MEDS ORDERED: IBUPROFEN 200 MG TAB PO PRN (15:12)
[2019-06-02] MEDS ORDERED: CARVEDILOL 3.125 MG TAB PO ONE (15:45)
[2019-06-02] MEDS ORDERED: NAPROXEN 250 MG TAB PO PRN (18:47)
[2019-06-02] MEDS ORDERED: COLESTIPOL HCL 1 GM TAB PO PRN (18:59)
[2019-06-02] MEDS: CARVEDILOL 3.125 MG TAB PO SCH (20:38)
[2019-06-02] MEDS ORDERED: AMITRIPTYLINE HCL 25 MG TAB PO SCH (21:00)
[2019-06-02] MEDS ORDERED: INSULIN GLARGINE SOLOSTAR 100 UNITS/ML 3 ML PEN SQ SCH ×2 (21:00)
[2019-06-02] MEDS ORDERED: DULOXETINE HCL 30 MG CAP PO SCH (21:00)
[2019-06-02] MEDS ORDERED: DULOXETINE HCL 60 MG CAP PO SCH (21:00)
[2019-06-03] MEDS: BCP'S~ORDER AWAITING ACTION SCH ×3 (00:58→16:00)
[2019-06-03 07:40] LABS: Basophils # (auto) 0.02 K/uL (0-0.2); Basophils % (auto) 0.3 %; Eosinophils # (auto) 0.17 K/uL (0-0.5); Eosinophils % (auto) 2.7 %; Hematocrit (blood only) 37.2 % (37-47); Hemoglobin 12.5 g/dL (12.0-16.0); Immature Granulocytes # (auto) 0.09 K/uL (0.00-0.02); Immature Granulocytes % (auto) 1.4 %; Lymphocytes # (auto) 2.85 K/uL (1.2-3.4); Lymphocytes % (auto) 45.4 %; Mean Corpuscular Hgb Conc 33.6 g/dL (32-36); Mean Corpuscular Volume 82.9 fL (80-100); Mean Platelet Volume 9.7 fL (7.4-10.4); Monocytes # (auto) 0.54 K/uL (0.11-0.59); Monocytes % (auto) 8.6 %; Neutrophils # (auto) 2.61 K/uL (1.4-6.5); Neutrophils % (auto) 41.6 %; Platelet Count 346 K/uL (130-400); RDW Coefficient of Variation 13.6 % (11.5-14.5); RDW Standard Deviation 41.2 fL (36.4-46.3); Red Blood Count 4.49 M/uL (4.2-5.4); White Blood Count 6.28 K/uL (4.8-10.8)
[2019-06-03 07:46] LABS: Estimated Average Glucose 189 mg/dl; Hemoglobin A1C 8.2 % (4.5-5.6)
[2019-06-03 08:05] LABS: Albumin Level 2.6 gm/dl (3.4-5.0); BUN Creatinine Ratio 7.4 (10-20); Calcium 8.4 mg/dl (8.5-10.1); Creatinine Clr Calc Pharmacy 164.7 ml/min; Est GFR (African American) 140.2; Potassium 3.8 mmol/L (3.5-5.1)
[2019-06-03 08:08] LABS: Albumin Globulin Ratio 0.8 (0.9-2); Bilirubin,Total 0.4 mg/dl (0.2-1); Globulin 3.4 gm/dl (2.5-4.0)
[2019-06-03] MEDS: CARVEDILOL 3.125 MG TAB PO SCH (08:29)
[2019-06-03] MEDS: INSULIN ASPART 100 UNITS/ML 3 ML PEN SC SCH ×2 (08:29→12:35)
[2019-06-03] MEDS: INSULIN GLARGINE SOLOSTAR 100 UNITS/ML 3 ML PEN SC SCH (08:31)
[2019-06-03] MEDS: ENOXAPARIN INJ 40 MG/0.4 ML SYR SQ SCH (08:33)
[2019-06-03] MEDS ORDERED: LISINOPRIL 2.5 MG TAB PO SCH ×2 (09:00)
--- NOTE | 2019-06-03 15:22 | Hospitalist Progress Note ---
Date of Service June 03, 2019 Assessment & Plan (1) Diarrhea: -Patient with 3 weeks of diarrhea -patient reports sick contact also with diarrhea around the same time -patient also notes that she was started on oral metformin and Januvia 6 weeks ago in the beginning of April 2019 for newly diagnosed Diabetes Mellitus -stool studies are negative, Giardia antigen pending but unlikely infectious diarrhea -C.difficile negative -Patient was assessed by inpatient [facility] associated gastroenterology service and patient can consider outpatient colonoscopy with gastroenterology clinic -possible diarrhea caused by oral diabetes medications and insulin was substituted during hospital stay -as of 06/03/19 diarrhea appears to have resolved or at least gone away temporarily and patient ready to leave the hospital to go home -Discharge to Home Patient should take 10 units of Lantus daily and hold off on oral metformin and Januvia until follow up with primary care doctor Patient should take lisinopril 5 mg daily and carvedilol 3.125 mg twice a day for hypertension Prescriptions sent to [facility] - [place] is located on [address] [place] [address], [place] [address] appointments (06/04/2019 8:00 AM Provider REVA Tiwari Department Sleep Disorders, [facility]) (06/12/2019 11:00 AM Provider Sharon Ruby MD Department General Internal Medicine [facility] Patient should discuss with outpatient doctor on further diabetes management) (Patient may see [facility] diabetic clinic and schedule own appointment) Dehydration secondary to diarrhea Sinus Tachycardia secondary to diarrhea and dehydration -was given IV fluids and telemetry monitoring -was upgraded from observation to admission status given tachycardia which have been at times to be above 110 beats per minute -Hgb change from 16.2 form 06/01/19 to 12.6 on 06/02/19 likely reflective of fluids for dehydration; CBC stable as 12.5 on 06/03/19 -no gross blood per rectum reported Hypertension -heart rate and elevated blood pressure controlled by carvedilol 3.125 mg BID and lisinopril 5 mg daily -continue these medications as outpatient and follow up with primary care doctor Diabetes Type 2 without predatory animal exterminator current use of insulin -hold home dose metformin/Januvia -insulin in the hospital for now -pharmacy glycemic control to follow her insulin requirements in the hospital to estimate insulin needs when off metformin/Januvia -Patient should take 10 units of Lantus daily and hold off on oral metformin and Januvia until follow up with primary care doctor Mood stable -on duloxetine and clonazepam prn DVT prophylaxis. SCDs and ambulation Full code Discharge Diagnosis Diarrhea, Type 2 diabetes mellitus without predatory animal exterminator current use of insulin, Hypertension, Dehydration secondary to diarrhea, Sinus Tachycardia secondary to diarrhea and dehydration Subjective Patient denies diarrhea today. no abdomen pain. no chest pain. no palpations. heart rate and blood pressure are better today. no shortness of breath. no dizziness. no lightheadedness. Physical Exam Constitutional: + obese Eyes: PERRL, conjunctivae normal, anicteric sclerae EOM intact bilaterally ENMT: external ear and nose normal, oropharynx normal Neck: trachea midline, no thyromegaly Respiratory: normal respiratory effort, lungs clear to auscultation Cardiovascular: Rate/Rhythm: regular rate and regular rhythm Gastrointestinal (Abdomen): normal bowel sounds, soft, nontender, no hepatosplenomegaly Musculoskeletal: no cyanosis or clubbing, extremities motor strength 5/5 Neurologic: PERRL, EOMI, accommodation nl, no face palsy, no dysarthria CN's II-XI intact bilaterally Psychiatric: A+Ox3, euthymic affect Results & Data Vital Signs (Past 12 Hours) Vital Signs Temp Pulse Pulse Resp BP BP Pulse Ox 06/03/19 15:03 36.8 C 95 H 16 142/94 H 98 06/03/19 11:20 36.6 C 102 H 16 140/99 96 06/03/19 07:34 98 H 06/03/19 07:26 36.4 C L 95 H 16 148/99 H 97 06/03/19 04:00 36.6 C 93 H 20 138/94 97
--- NOTE | 2019-06-03 15:34 | Discharge Summary ---
Date of Service June 03, 2019 Admission HPI Per Admitting Provider History obtained from patient and records. Medical history significant for mood disorder, DM 2 on oral medications, past tobacco abuse. 1 month history of watery diarrhea symptoms (more than 12 times a day) with abdominal cramping. Low-grade fever. Episodic nausea, vomiting. No recent antibiotic Rx, no known sick contacts, no recent travel. Januvia and Metformin for newly diagnosed DM2 started a week prior to onset of diarrhea symptoms last month. Diarrhea persistent despite stopping metformin intake for one day as per patient. Patient seen at the ER [address] of the abdomen pelvis showed fluid-filled colon and rectum suggesting diarrheal state. No bowel thickening. Fatty infiltration of the liver. Stool C. difficile was negative Antidiarrheal meds prescribed. Patient return to the ER tonight because of persistent diarrhea symptoms. Patient denies chest pain, S OB. 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 Admission Exam Per Admitting Provider GENERAL: Slightly uncomfortable, pleasant, obese, no respiratory distress SKIN: Normal color, warm HEENT: Bespectacled, pink palpebral conjunctivae, no ptosis, dry buccal mucosa NECK : Supple, short, no tenderness CHEST : CTA, no tenderness HEART : Tachycardic , no obvious murmurs ABDOMEN: Some distention, nontender EXTREMITIES : No LE swelling/tenderness, no other conspicuous deformities noted NEUROLOGIC : Coherent, no facial asymmetry, no other gross focality Principal Diagnosis Diarrhea, Type 2 diabetes mellitus without 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 current use of insulin, Hypertension, Dehydration secondary to diarrhea, Sinus Tachycardia secondary to diarrhea and dehydration Discharge Exam Constitutional + obese Eyes PERRL, conjunctivae normal, anicteric sclerae EOM intact bilaterally ENMT external ear and nose normal, oropharynx normal Neck trachea midline, no thyromegaly Respiratory normal respiratory effort, lungs clear to auscultation Cardiovascular Rate/Rhythm: regular rate and regular rhythm Gastrointestinal (Abdomen) normal bowel sounds, soft, nontender, no hepatosplenomegaly Musculoskeletal no cyanosis or clubbing, extremities motor strength 5/5 Neurologic PERRL, EOMI, accommodation nl, no face palsy, no dysarthria CN's II-XI intact bilaterally Psychiatric A+Ox3, euthymic affect Discharge Data Allergies Allergy/AdvReac Type Severity Reaction Status Date / Time adhesive tape Allergy Mild Rash Verified 06/01/19 20:50 nickel Allergy Mild Rash Verified 06/01/19 20:50 lactose AdvReac Verified 06/02/19 03:11 Consultations 06/02/19 00:10 ED Decision to Admit Stat 06/02/19 02:13 Consult Gastroenterology Routine Hospital Course (1) Diarrhea: -Patient with 3 weeks of diarrhea -patient reports sick contact also with diarrhea around the same time -patient also notes that she was started on oral metformin and Januvia 6 weeks ago in the beginning of April 2019 for newly diagnosed Diabetes Mellitus -stool studies are negative, Giardia antigen pending but unlikely infectious diarrhea -C.difficile negative -Patient was assessed by inpatient [facility] associated gastroenterology service and patient can consider outpatient colonoscopy with gastroenterology clinic -possible diarrhea caused by oral diabetes medications and insulin was substituted during hospital stay -as of 06/03/19 diarrhea appears to have resolved or at least gone away temporarily and patient ready to leave the hospital to go home -Discharge to Home Patient should take 10 units of Lantus daily and hold off on oral metformin and Januvia until follow up with primary care doctor Patient should take lisinopril 5 mg daily and carvedilol 3.125 mg twice a day for hypertension Prescriptions sent to [facility] - [facility] is located on [address] [place] [address], [place] [id number] appointments (06/04/2019 8:00 AM Provider REVA Tiwari Department Sleep Disorders, [facility]) (06/12/2019 11:00 AM Provider Sharon Ruby MD Department General Internal Medicine [facility] Patient should discuss with outpatient doctor on further diabetes management) (Patient may see [facility] diabetic clinic and schedule own appointment) Dehydration secondary to diarrhea Sinus Tachycardia secondary to diarrhea and dehydration -was given IV fluids and telemetry monitoring -was upgraded from observation to admission status given tachycardia which have been at times to be above 110 beats per minute -Hgb change from 16.2 form 06/01/19 to 12.6 on 06/02/19 likely reflective of fluids for dehydration; CBC stable as 12.5 on 06/03/19 -no gross blood per rectum reported Hypertension -heart rate and elevated blood pressure controlled by carvedilol 3.125 mg BID and lisinopril 5 mg daily -continue these medications as outpatient and follow up with primary care doctor Diabetes Type 2 without [place] [facility] current use of insulin -hold home dose metformin/Januvia -insulin in the hospital for now -pharmacy glycemic control to follow her insulin requirements in the hospital to estimate insulin needs when off metformin/Januvia -Patient should take 10 units of Lantus daily and hold off on oral metformin and Januvia until follow up with primary care doctor Mood stable -on duloxetine and clonazepam prn DVT prophylaxis. 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 2 diabetes mellitus without 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 current use of insulin, Hypertension, Dehydration secondary to diarrhea, Sinus Tachycardia secondary to diarrhea and dehydration Condition: Fair Discharge Goals: Improve disease control Activity: Per 'Additional Instructions' section Non-emergency contact: Primary Care Provider Call non-emergency contact if: you have any medication questions Follow-up/Referrals: Sharon Ruby MD [Primary Care Provider] - Diet: Carb Consistent or DM2 Addtl Provider Instructions: Discharge to Home Patient should take 10 units of Lantus daily and hold off on oral metformin and Januvia until follow up with primary care doctor Patient should take lisinopril 5 mg daily and carvedilol 3.125 mg twice a day for hypertension Prescriptions sent to [facility] - [facility] is located on [address] [place] [address], [place] [address] Patient was assessed by inpatient [facility] gastroenterology service and patient can consider outpatient colonoscopy with gastroenterology clinic Follow up appointment Patient has follow up appointment to 06/04/2019 8:00 AM Provider REVA Tiwari Department Sleep Disorders, [facility] 06/12/2019 11:00 AM Provider Sharon Ruby MD Department General Internal Medicine [facility] Patient should discuss with outpatient doctor on further diabetes management Patient may see [facility] diabetic clinic and schedule own appointment Prescriptions: New carvedilol 3.125 mg Tablet 3.125 mg PO BID 30 Days Qty: 60 RF: 0 lisinopril 2.5 mg Tablet 5 mg PO QAM 30 Days Qty: 60 RF: 0 Lantus Solostar U-100 Insulin 100 unit/mL (3 mL) Insulin Pen 10 unit SC TODAY@0900 30 Days Qty: 9 RF: 0 Continued amitriptyline 75 mg tablet 75 mg PO HS RF: 0 (21) 1.5-30 mg-mcg tablet 1 tab PO DAILY RF: 0 duloxetine 60 mg capsule,delayed release(DR/EC) 60 mg PO QPM RF: 0 duloxetine 30 mg capsule,delayed release(DR/EC) 30 mg PO QPM RF: 0 diphenoxylate-atropine [Lomotil] 2.5-0.025 mg tablet 1 - 2 tab PO Q6H PRN (Reason: Diarrhea) RF: 0 clonazepam 0.5 mg tablet 0.5 mg PO Q6H PRN (Reason: Panic Attack(S)) RF: 0 sumatriptan succinate 50 mg tablet 50 mg PO DIRECTED MDD 200 MG/24 HOURS PRN (Reason: Migraine Headache) RF: 0 Discontinued metformin 500 mg tablet extended release 24 hr 500 mg PO BID RF: 0 Januvia 100 mg tablet 100 mg PO QAM RF: 0 Stand-Alone Forms: [facility] [employer] [facility]/Other Patient Handouts: Diabetes Financial Reporting Director Complications, Hyperglycemia, Hypoglycemia, Diabetes Resources, Diabetes Type 2 Coping, Diabetes Type 2 Oral Meds, Diabetes Healthy Meals, Diabetes Carbs, Blood Sugar Manage Exercise, Diabetes Manage A1C Test Discharge Orders: Discharge Order (Routine); Ordered 06/03/19 Ordered By: Osmin Pradhan Admission Data Admit Date/Time: 06/02/19 10:23 Attending Provider: Osmin Pradhan Admit Provider: Rodolfo Kwan Primary Care Provider: Sharon Ruby Other Providers: Rodolfo Kwan ; Denis Negron Service: Telemetry Medical Other Studies:: Giardia antigen pending
== END 2019-06-03 16:17 | disposition home or self-care (01) | DRG 394 ==
LOC: 2N 19:58 → ED 19:58 → 2N 06-02 01:35